=== PATIENT | female | born 1995 ===

== ENCOUNTER 2020-04-02 21:18 | Outpatient (REF) | payer BC, SELFPAY ==
[2020-04-02 23:01] LABS: TSH (W/Ref FT4) 1.27 uIU/mL (0.36-3.74); Vitamin B12 479 pg/mL (193-986)
[2020-04-04 04:51] LABS: Vitamin D 25 Total 58.1 ng/ml (30-100)
[2020-04-04 16:01] LABS: ANA Interpretation Negative (Negative)
== END 2020-04-02 21:38 ==
LOC: NCHCN 21:18
PROVIDERS: Visit Provider Nurse Practitioner Family
DX: F41.9 Anxiety disorder, unspecified (principal); F32.9 Major depressive disorder, single episode, unspecified
CPT/HCPCS: 82306; 82607; 84443; 86038